=== PATIENT | female | born 1965 | race Caucasian/White ===

== ENCOUNTER → 2019-01-09 | Outpatient (CLI) | payer OTHER | END | disposition home or self-care (01) | LOC: NUC 09:45 | PROVIDERS: ATTEND Orthopaedic Surgery Adult Reconstructive Orthopaedic Surgery | DX: S72.001 Fracture of unspecified part of neck of right femur (principal); X58.XXXD Exposure to other specified factors, subsequent encounter | CPT/HCPCS: 78315; A9503 ==

== ENCOUNTER → 2019-01-10 | Outpatient (CLI) | payer OTHER | END | disposition home or self-care (01) | LOC: EDUNIT# 09:00 → NUC 09:35 | PROVIDERS: ATTEND Orthopaedic Surgery Adult Reconstructive Orthopaedic Surgery | DX: S72.001 Fracture of unspecified part of neck of right femur (principal); X58.XXXD Exposure to other specified factors, subsequent encounter; M16.11 Unilateral primary osteoarthritis, right hip | CPT/HCPCS: 78806; A9570 ==

== ENCOUNTER → 2019-04-22 | Outpatient (CLI) | payer OTHER ==
[~2019-04-22] MED LIST: ASPI-1044 PO; Acetaminophen PO; GABA300C16 PO; IBUP-1542 PO; IBUP-1545 PO; OXYC-481 PO
--- NOTE | 2019-04-28 23:05 | RADRPT ---
PROCEDURE: XR hip with limited pelvis. CLINICAL INDICATION: 53 years of age. Female. Right hip pain. History of right hip fracture. Concern for osteomyelitis versus osteoarthritis. TECHNIQUE: AP view of the inferior pelvis and 2 views of the right hip. COMPARISON: Nuclear medicine study bone scan and white blood cell indium scan January 09 and December. FINDINGS: Bones are osteopenic. RIGHT HIP: There are 2 screws transfixing the right femoral neck. Orthopedic hardware is intact without evidence of component loosening or failure. There is severe osteoarthritis of the right hip with obliteration of the superior joint space, subchondral sclerosis and bulky osteophytes. There is flattening of the superior femoral head with deformity concerning for osteonecrosis with articular surface collapse. T here is heterotopic ossification at the superior aspect of the hip with incomplete bony bridging. Limited imaging of the proximal femoral shaft demonstrates cortical thickening and bony expansion wit h periosteal new bone formation that may be from an old healed fracture. There is a radiolucency in t he bone that may be from prior removed hardware. AP PELVIS: Negative for evidence of acute fracture of the obturator rings or inferior iliac wings. Inferior sacr um and sacroiliac joints appear normal. The superior iliac wings and superior sacrum are excluded fro m the field of view. Limited left hip: Unremarkable. Additional comment: None. IMPRESSION: 1. Status post ORIF of the right femoral neck with hardware as described. 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 If there is clinical concern for septic arthritis or osteomyelitis, c onsider further evaluation with MRI or CT or diagnostic joint aspiration. MRI may or may not be diagn ostic depending on the nature of the hardware. 2. Suspected old healed fracture deformity of the right proximal femoral shaft with hyperostosis and radiolucency that may be due to a removed hardware. RPTAT: HCTS Physician Kenneth Date Time Electronically viewed and signed by Physician Kenneth on 04/28/2019 23:04 CS/
== END | disposition home or self-care (01) ==
LOC: HKI 09:51
PROVIDERS: ATTEND Orthopaedic Surgery Adult Reconstructive Orthopaedic Surgery
DX: M25.551 Pain in right hip (principal); M16.7 Other unilateral secondary osteoarthritis of hip
CPT/HCPCS: 73502

== ENCOUNTER 2019-05-07 09:07 | Inpatient (IN) | payer OTHER ==
[2019-04-29 09:53] VITALS: BMI 27.2
[~2019-05-07] VITALS: Ht 170.2 cm; Wt 77.4 kg
[2019-05-07] VITALS (23 sets, daily range): BP systolic 71–130; BP diastolic 46–64; PULSE 51–87; RESP 11–18; Ht 170.2 cm; Wt 77.4 kg
[~2019-05-07 09:07] MED LIST changes: +ACETAMINOPHEN 500 MG TAB PO ONE; -ASPI-1044 PO; -Acetaminophen PO; +CEFAZOLIN 2 GM/50 ML (PMX) 50 ML IVPB ONE; +CELECOXIB 200 MG CAP PO ONE; -GABA300C16 PO; +LACTATED RINGER'S 1,000 ML IV SCH; +LANSOPRAZOLE 30 MG CAP PO ONE; +ONDANSETRON 4 MG INJ IV ONE; -OXYC-481 PO; +TRANEXAMIC ACID 1GM/100ML(PMX) 100 ML AT CLOSING IVPB ONE; +TRANEXAMIC ACID 1GM/100ML(PMX) 100 ML PRE-OP IVPB ONE
--- NOTE | 2019-05-07 10:47 | PREAC ---
Date/Time of Note Date/Time of Note DATE: 05/07/19 TIME: 10:45 Anesthesia Eval and Record Evaluation Time Pre-Procedure Interview DATE: 05/07/19 TIME: 10:45 Age 53 Sex female NPO: 8 hrs Preoperative diagnosis right hip osteoarthritis Planned procedure right total hip replacement Past Medical History Past Medical History: Includes Musculoskeletal: Osteoarthritis Surgery & Anesthesia Issues No known issue Meds Anticoagulation: No Beta Dylon within 24 hr: No Reason Beta Dylon not given: Pt. not on B-Dylon Discontinued Reported Medications Ibuprofen* (Ibuprofen*) 800 Mg Tab, 800 MG PO TID, TAB 04/29/19 Ibuprofen* (Ibuprofen*) 600 Mg Tablet, 600 MG PO Q8, TAB 04/29/19 Current Medications Lactated Ringer's 1,000 ml @ 125 mls/hr Q8H IV ; Start 05/07/19 at 09:00; Stop 05/07/19 at 15:00 Ropivacaine/ Clonidine/ Epinephrine/ Ketorolac Tromethamine/ Sodium Chloride INTRA-OP INJ ; Start 05/07/19 at 14:00; Stop 05/07/19 at 15:00 Acetaminophen 100 ml @ 400 mls/hr PRE-OP ONCE IVPB ; Start 05/07/19 at 11:00; Stop 05/07/19 at 11:14 Meds reviewed: Yes Allergies Coded Allergies: No Known Allergy (Unverified , 05/07/19) Allergies Reviewed: Yes Labs/Studies Labs Reviewed: Reviewed by anesthesiologist test: Negative Studies: ECG, CXR Pre-procedure Exam Airway: Adequate mouth opening, Adequate thyromental dist Mallampati: Mallampati II Teeth: Normal Lung: Normal Heart: Normal ASA Physical Status ASA physical status: 2 Emergency: None Planned Anesthetic General/MAC: ETT Neuraxial: Spinal Planned Pain Management Parenteral pain med Pre-operative Attestations Prior to commencing anesthesia and surgery, the patient was re-evaluated, there was verification of: *The patient's identity *The results of appropriate recent lab work and preoperative vital signs *The above evaluation not changing prior to induction *Anesthetic plan, risk benefits, alternative and complications discussed with patient/family; questions answered; patient/family understands, accepts and wishes to proceed. ABRIL AVELAR May 07, 2019 10:47
[2019-05-07] MEDS ORDERED: ACETAMINOPHEN 1000MG/100ML IV 100 ML IVPB ONE (11:00)
[2019-05-07] MEDS ORDERED: VANCOMYCIN 1 GM INJ ONE (11:59)
[2019-05-07] MEDS ORDERED: TOBRAMYCIN 1.2 GM POWDER ONE (12:00)
--- NOTE | 2019-05-07 12:12 | HPN ---
Date/Time of Note Date/Time of Note DATE: 05/07/19 TIME: 12:12 Interval H&P Admission Note Pt. seen H&P reviewed: No system changes Patient denies fever, chills, shortness of breath, chest pain, nausea/vomiting, constipation, diarrhea, numbness, and tingling. MUSCULOSKELETAL: Right lower extremity Skin intact Sensation intact to light touch in a sural, saphenous, deep peroneal, superficial peroneal, medial and lateral plantar nerve distribution. Motor is intact, patient able to dorsiflex and plantarflex ankle and extend and flex great toe. Dorsalis Pedis pulse +2, Brisk capillary refill. Compartments are soft. Calves non-tender to palpation bilaterally. JOSELUIS ESTEBAN MD May 07, 2019 12:12
[2019-05-07] MEDS ORDERED: SEVOFLURANE 15 MIN ONE (12:15)
[2019-05-07] MEDS ORDERED: FENTAnyl 50 MCG/ML VIAL ONE (12:15)
[2019-05-07] MEDS ORDERED: ROCURONIUM 50 MG INJ ONE ×2 (12:15→13:14)
[2019-05-07] MEDS ORDERED: CEFAZOLIN 1 GM INJ ONE (12:15)
[2019-05-07] MEDS ORDERED: PROPOFOL 20 ML ONE (12:15)
[2019-05-07] MEDS ORDERED: MIDAZOLAM 1 MG/ML 2 ML INJ ONE (12:16)
[2019-05-07] MEDS ORDERED: LIDOCAINE 2% (SDV) 5 ML INJ ONE (13:14)
[2019-05-07] MEDS ORDERED: DEXAMETHASONE 4 MG/ML 5 ML INJ ONE (13:14)
[2019-05-07] MEDS ORDERED: TRANEXAMIC ACID 1GM/100ML(PMX) 100 ML ONE ×2 (17:06→17:07)
[2019-05-07] MEDS ORDERED: ONDANSETRON 4 MG INJ ONE (17:49)
--- NOTE | 2019-05-07 18:07 | PAC ---
Date/Time of Note Date/Time of Note DATE: 05/07/19 TIME: 18:06 Post-Anesthesia Notes Post-Anesthesia Note Last documented vital signs Vital Signs Date Temp Pulse Resp B/P (MAP) Pulse Ox O2 O2 Flow FiO2 Time Delivery Rate 05/07/19 98.2 51 16 130/64 100 1806 (86) Activity: WNL Respiratory function: WNL Cardiovascular function: WNL Mental status: Baseline Pain reasonably controlled: Yes Hydration appropriate: Yes Nausea/Vomiting absent: Yes ABRIL AVELAR May 07, 2019 18:07
[2019-05-07] MEDS ORDERED: LABETALOL HCL 20MG INJ IV PRN (18:30)
[2019-05-07] MEDS ORDERED: BETHANECHOL 25 MG TAB PO PRN (18:30)
[2019-05-07] MEDS ORDERED: NALOXONE (0.4 MG/ML) INJ IV PRN (18:30)
[2019-05-07] MEDS ORDERED: MAGNESIUM HYDROXIDE 30ML CUP PO PRN (18:30)
[2019-05-07] MEDS ORDERED: DIPHENHYDRAMINE 50 MG INJ IV PRN ×2 (18:30)
[2019-05-07] MEDS ORDERED: MEPERIDINE 25 MG INJ IV PRN (18:30)
[2019-05-07] MEDS ORDERED: ONDANSETRON 4 MG INJ IV PRN (18:30)
[2019-05-07] MEDS ORDERED: METOCLOPRAMIDE 10 MG INJ IV PRN (18:30)
[2019-05-07] MEDS ORDERED: hydrALAzine 20 MG INJ IV PRN (18:30)
[2019-05-07] MEDS ORDERED: NACL 0.9% 3 ML SYG IV SCH (18:30)
[2019-05-07] MEDS ORDERED: KETOROLAC 30 MG INJ IV PRN (18:30)
[2019-05-07] MEDS ORDERED: SENNA/DOCUSATE NA (8.6MG/50MG) TAB PO PRN (18:30)
[2019-05-07] MEDS ORDERED: HYDROmorphONE 1 MG/5 ML IV SYRINGE IV PRN ×3 (18:30)
[2019-05-07] MEDS ORDERED: ALBUTEROL 0.083% (NEB) 2.5 MG/3 ML AMP HHN PRN (18:30)
[2019-05-07] MEDS ORDERED: oxyCODONE 5 MG TAB PO PRN ×3 (18:30)
[2019-05-07] MEDS ORDERED: BISACODYL 10 MG SUPP PR PRN (18:30)
[2019-05-07] MEDS ORDERED: FENTAnyl 50 MCG/ML VIAL IV PRN ×3 (18:30)
[2019-05-07] MEDS ORDERED: EPHEDrine 25 MG/5 ML SYG IV PRN (18:30)
[2019-05-07] MEDS ORDERED: DOCUSATE SODIUM 100 MG CAP PO ONE (18:30)
[2019-05-07] MEDS ORDERED: HYDROmorphONE 1 MG/ML SYG IV PRN (18:30)
[2019-05-07] MEDS ORDERED: NA PHOSPHATE/BIPHOS 133 ML ENEMA PR PRN (18:30)
--- NOTE | 2019-05-07 19:24 | CONS ---
Assessment/Plan Assessment/Plan Assessment/Plan (Daily) 53 yo woman with prediabetes admitted after R total hip revision arthroplasty #R hip revision arthroplasty - Pain control per ortho - Weight bearing and PT per ortho - Anticoagulation per ortho #Pre-diabetes - I suspect this may have been more than "pre" diabetes as her fasting glucose postop was 184 and she had been prescribed metformin. - Will check HgbA1C - Insulin sliding scale, depending on blood sugars tonight will consider restarting metformin tomorrow - Carb controlled diet Medicine will continue to follow. Consultation Date/Type/Reason Admit Date/Time May 07, 2019 at 09:12 Date of Consultation: May 07, 2019 Type of Consult Internal Medicine Reason for Consultation Postoperative management Requesting Provider: JOSELUIS MENDEZ MD Date/Time of Note DATE: 05/07/19 TIME: 19:12 Hx of Present Illness Ms. Peralta is a 53 yo woman with history of prediabetes who presents for scheduled revision R hip arthroplasty. She had fall and fractured her R hip in 1984 and had surgical repair. For the past three years she's had severe arthritis symptoms. Takes frequent ibuprofen, no acetaminophen no opioids. Admitted today after R hip revision arthroplasty by Dr. Mendez. She was diagnosed with prediabetes recently and started on metformin. She stopped taking metformin about 6 months ago because she thinks "it got better". Fingerstick blood glucose in the PACU postop was 184. 12 point review of systems done, negative except per HPI. Past Medical History Pre-diabetes stopped metformin 6 months ago. Home Meds Discontinued Reported Medications Ibuprofen* (Ibuprofen*) 800 Mg Tab, 800 MG PO TID, TAB 04/29/19 Ibuprofen* (Ibuprofen*) 600 Mg Tablet, 600 MG PO Q8, TAB 04/29/19 Medications Current Medications Hydromorphone HCl (Dilaudid) 0.2 mg PACU PRN IV MILD PAIN 1-3; Start 05/07/19 at 18:30; Stop 05/07/19 at 23:00 Hydromorphone HCl (Dilaudid) 0.4 mg PACU PRN IV MOD PAIN 4-6; Start 05/07/19 at 18:30; Stop 05/07/19 at 23:00 Hydromorphone HCl (Dilaudid) 0.6 mg PACU PRN IV SEVERE PAIN 7-10; Start 05/07/19 at 18:30; Stop 05/07/19 at 23:00 Fentanyl (Sublimaze) 25 mcg PACU ORDER PRN IV MILD PAIN 1-3; Start 05/07/19 at 18:30; Stop 05/07/19 at 23:00 Fentanyl (Sublimaze) 50 mcg PACU ORDER PRN IV MOD PAIN 4-6; Start 05/07/19 at 18 :30; Stop 05/07/19 at 23:00 Fentanyl (Sublimaze) 75 mcg PACU ORDER PRN IV SEVERE PAIN 7-10; Start 05/07/19 at 18:30; Stop 05/07/19 at 23:00 Ketorolac Tromethamine (Toradol) 30 mg PACU ORDER PRN IV FOR PAIN AFTER IV NARCOTIC MED; Start 05/07/19 at 18:30; Stop 05/07/19 at 23:00 Ondansetron HCl (Zofran Inj) 4 mg PACU ORDER PRN IV NAUSEA/VOMITING; Start 05/07/19 at 18:30; Stop 05/07/19 at 23:00 Metoclopramide HCl (Reglan) 10 mg PACU ORDER PRN IV NAUSEA/VOMITING; Start 05/07/19 at 18:30; Stop 05/07/19 at 23:00 Labetalol HCl (Labetalol) 5 mg PACU ORDER PRN IV HIGH BLOOD PRESSURE; Start 05/07/19 at 18:30; Stop 05/07/19 at 23:00 Hydralazine HCl (Apresoline) 5 mg PACU ORDER PRN IV HIGH BLOOD PRESSURE; Start 05/07/19 at 18:30; Stop 05/07/19 at 23:00 Ephedrine Sulfate 5 mg PACU ORDER PRN IV BLOOD PRESSURE SUPPORT; Start 05/07/19 at 18:30; Stop 05/07/19 at 23:00 Albuterol (Proventil 0.083% (Neb)) 2.5 mg PACU ORDER PRN HHN .WHEEZING; Start 05/07/19 at 18:30; Stop 05/07/19 at 23:00 Meperidine HCl (Demerol) 25 mg PACU ORDER PRN IV .RIGORS; Start 05/07/19 at 18:30; Stop 05/07/19 at 23:00 Diphenhydramine HCl (Benadryl) 25 mg PACU ORDER PRN IV .PRURITUS; Start 05/07/19 at 18:30; Stop 05/07/19 at 23:00 Lactated Ringer's 1,000 ml @ 80 mls/hr [id number] IV ; Start 05/07/19 at 18:17 Oxycodone HCl (Roxicodone) 15 mg Q4H PRN PO .PAIN; Start 05/07/19 at 18:30 Oxycodone HCl (Roxicodone) 10 mg Q4H PRN PO .PAIN; Start 05/07/19 at 18:30 Oxycodone HCl (Roxicodone) 5 mg Q4H PRN PO .PAIN; Start 05/07/19 at 18:30 Hydromorphone HCl (Dilaudid) 1 mg Q3H PRN IV .BREAKTHROUGH PAIN; Start 05/07/19 at 18:30 Acetaminophen (Tylenol Tab) 1,000 mg Q8 PO ; Start 05/07/19 at 22:00 Ondansetron HCl (Zofran Inj) 4 mg Q4H PRN IV NAUSEA/VOMITING; Start 05/08/19 at 18:30 Cefazolin Sodium/ Dextrose 50 ml @ 100 mls/hr Q8H IVPB ; Start 05/07/19 at 18:30; Stop 05/08/19 at 10:59 Gabapentin (Neurontin) 300 mg QHS PO ; Start 05/07/19 at 21:00 Pantoprazole (Protonix Tab) 40 mg DAILY@06 PO ; Start 05/08/19 at 06:00 Docusate Sodium (Colace) 200 mg BID PO ; Start 05/08/19 at 09:00; Stop 05/10/19 at 21:01 Simethicone (Mylicon) 80 mg TID PRN PO .GAS; Start 05/07/19 at 18:30 Senna/Docusate Sodium (Senokot-S) 2 tab BID PRN PO .CONSTIPATION; Start 05/07/19 at 18:30 Magnesium Hydroxide (Milk Of Mag) 30 ml HS PRN PO .CONSTIPATION; Start 05/07/19 at 18:30 Bisacodyl (Dulcolax Supp) 10 mg DAILY PRN VA .CONSTIPATION; Start 05/07/19 at 18:30 Sodium Biphosphate/ Sodium Phosphate (Fleet Enema) 133 ml DAILY PRN VA .CONSTIPATION; Start 05/07/19 at 18:30 Diphenhydramine HCl (Benadryl) 25 mg Q4H PRN IV .ITCHING; Start 05/07/19 at 18:30 Naloxone HCl (Narcan) 0.2 mg Q2M PRN IV .RESP RATE; Start 05/07/19 at 18:30 IV Flush (NS 3 ml) 3 ml per protocol IV ; Start 05/07/19 at 18:30 Bethanechol Chloride (Urecholine) 25 mg URINARY CATH D/C PRN PO UNABLE TO VOID; Start 05/07/19 at 18:30 Aspirin (Halfprin) 81 mg BID PO ; Start 05/08/19 at 09:00 Allergies: Coded Allergies: No Known Allergy (Unverified , 05/07/19) Past Surgical History R hip repair 1985 x3 R breast lipoma removal (benign) Social History Alcohol Use: none Smoking Status: Never smoker Drug Use: none Exam/Review of Systems Exam Vitals Vital Signs Date Temp Pulse Resp B/P (MAP) Pulse Ox O2 O2 Flow FiO2 Time Delivery Rate 05/07/19 98.2 51 16 130/64 100 11:31 (86) Intake and Output 05/06/19 05/06/19 05/07/19 1515:00 23:00 07:00 IntakeIntake Total 3000 ml OutputOutput Total 1100 ml BalanceBalance 1900 ml Exam Gen: Overweight woman well appearing in no acute distress. Eyes: PERRL, no icterus HEENT: Moist mucous membranes, intact dentition, clear oropharynx Neck: Supple, no lymphadenopathy Card: Regular rate and rhythm, no murmurs Pulm: Clear to auscultation bilaterally, no crackles Abd: Soft, nontender, nondistended. Normoactive bowel sounds. Ext: R hip well healed scar. Dressing clean, dry, intact. Peripherally neurovascular intact. Skin: warm, dry, well perfused. Results Result Diagram: 05/07/19 1050 05/07/19 1050 Results 24hrs Laboratory Tests Test 05/07/19 10:50 05/07/19 18:57 White Blood Count 5.2 Red Blood Count 4.37 Hemoglobin 12.1 Hematocrit 37.0 Mean Corpuscular Volume 84.7 Mean Corpuscular Hemoglobin 27.7 L Mean Corpuscular Hemoglobin Concent 32.7 Red Cell Distribution Width 14.6 H Platelet Count 180 Mean Platelet Volume 11.1 H Immature Granulocytes % 0.200 Neutrophils % 52.0 Lymphocytes % 37.4 Monocytes % 6.9 Eosinophils % 2.7 Basophils % 0.8 Nucleated Red Blood Cells % 0.0 Immature Granulocytes # 0.010 Neutrophils # 2.7 Lymphocytes # 2.0 Monocytes # 0.4 Eosinophils # 0.1 Basophils # 0.0 Nucleated Red Blood Cells # 0.0 Prothrombin Time 12.7 Prothrombin Time Ratio 1.0 INR International Normalized Ratio 0.94 Activated Partial Thromboplast Time 34.5 Sodium Level 145 H Potassium Level 4.2 Chloride Level 108 Carbon Dioxide Level 29 Anion Gap 8 Blood Urea Nitrogen 16 Creatinine 0.66 Est Glomerular Filtrat Rate mL/min > 60 Glucose Level 95 Calcium Level 9.8 Bedside Glucose 184 Medications Medication Current Medications Hydromorphone HCl (Dilaudid) 0.2 mg PACU PRN IV MILD PAIN 1-3; Start 05/07/19 at 18:30; Stop 05/07/19 at 23:00 Hydromorphone HCl (Dilaudid) 0.4 mg PACU PRN IV MOD PAIN 4-6; Start 05/07/19 at 18:30; Stop 05/07/19 at 23:00 Hydromorphone HCl (Dilaudid) 0.6 mg PACU PRN IV SEVERE PAIN 7-10; Start 05/07/19 at 18:30; Stop 05/07/19 at 23:00 Fentanyl (Sublimaze) 25 mcg PACU ORDER PRN IV MILD PAIN 1-3; Start 05/07/19 at 18:30; Stop 05/07/19 at 23:00 Fentanyl (Sublimaze) 50 mcg PACU ORDER PRN IV MOD PAIN 4-6; Start 05/07/19 at 18:30; Stop 05/07/19 at 23:00 Fentanyl (Sublimaze) 75 mcg PACU ORDER PRN IV SEVERE PAIN 7-10; Start 05/07/19 at 18:30; Stop 05/07/19 at 23:00 Ketorolac Tromethamine (Toradol) 30 mg PACU ORDER PRN IV FOR PAIN AFTER IV NARCOTIC MED; Start 05/07/19 at 18:30; Stop 05/07/19 at 23:00 Ondansetron HCl (Zofran Inj) 4 mg PACU ORDER PRN IV NAUSEA/VOMITING; Start 05/07/19 at 18:30; Stop 05/07/19 at 23:00 Metoclopramide HCl (Reglan) 10 mg PACU ORDER PRN IV NAUSEA/VOMITING; Start 05/07/19 at 18:30; Stop 05/07/19 at 23:00 Labetalol HCl (Labetalol) 5 mg PACU ORDER PRN IV HIGH BLOOD PRESSURE; Start 05/07/19 at 18:30; Stop 05/07/19 at 23:00 Hydralazine HCl (Apresoline) 5 mg PACU ORDER PRN IV HIGH BLOOD PRESSURE; Start 05/07/19 at 18:30; Stop 05/07/19 at 23:00 Ephedrine Sulfate 5 mg PACU ORDER PRN IV BLOOD PRESSURE SUPPORT; Start 05/07/19 at 18:30; Stop 05/07/19 at 23:00 Albuterol (Proventil 0.083% (Neb)) 2.5 mg PACU ORDER PRN HHN .WHEEZING; Start 05/07/19 at 18:30; Stop 05/07/19 at 23:00 Meperidine HCl (Demerol) 25 mg PACU ORDER PRN IV .RIGORS; Start 05/07/19 at 18:30; Stop 05/07/19 at 23:00 Diphenhydramine HCl (Benadryl) 25 mg PACU ORDER PRN IV .PRURITUS; Start 05/07/19 at 18:30; Stop 05/07/19 at 23:00 Lactated Ringer's 1,000 ml @ 80 mls/hr [id number] IV ; Start 05/07/19 at 18:17 Oxycodone HCl (Roxicodone) 15 mg Q4H PRN PO .PAIN; Start 05/07/19 at 18:30 Oxycodone HCl (Roxicodone) 10 mg Q4H PRN PO .PAIN; Start 05/07/19 at 18:30 Oxycodone HCl (Roxicodone) 5 mg Q4H PRN PO .PAIN; Start 05/07/19 at 18:30 Hydromorphone HCl (Dilaudid) 1 mg Q3H PRN IV .BREAKTHROUGH PAIN; Start 05/07/19 at 18:30 Acetaminophen (Tylenol Tab) 1,000 mg Q8 PO ; Start 05/07/19 at 22:00 Ondansetron HCl (Zofran Inj) 4 mg Q4H PRN IV NAUSEA/VOMITING; Start 05/08/19 at 18:30 Cefazolin Sodium/ Dextrose 50 ml @ 100 mls/hr Q8H IVPB ; Start 05/07/19 at 18:30; Stop 05/08/19 at 10:59 Gabapentin (Neurontin) 300 mg QHS PO ; Start 05/07/19 at 21:00 Pantoprazole (Protonix Tab) 40 mg DAILY@06 PO ; Start 05/08/19 at 06:00 Docusate Sodium (Colace) 200 mg BID PO ; Start 05/08/19 at 09:00; Stop 05/10/19 at 21:01 Simethicone (Mylicon) 80 mg TID PRN PO .GAS; Start 05/07/19 at 18:30 Senna/Docusate Sodium (Senokot-S) 2 tab BID PRN PO .CONSTIPATION; Start 05/07/19 at 18:30 Magnesium Hydroxide (Milk Of Mag) 30 ml HS PRN PO .CONSTIPATION; Start 05/07/19 at 18:30 Bisacodyl (Dulcolax Supp) 10 mg DAILY PRN VA .CONSTIPATION; Start 05/07/19 at 18:30 Sodium Biphosphate/ Sodium Phosphate (Fleet Enema) 133 ml DAILY PRN VA .CONSTIPATION; Start 05/07/19 at 18:30 Diphenhydramine HCl (Benadryl) 25 mg Q4H PRN IV .ITCHING; Start 05/07/19 at 18:30 Naloxone HCl (Narcan) 0.2 mg Q2M PRN IV .RESP RATE; Start 05/07/19 at 18:30 IV Flush (NS 3 ml) 3 ml per protocol IV ; Start 05/07/19 at 18:30 Bethanechol Chloride (Urecholine) 25 mg URINARY CATH D/C PRN PO UNABLE TO VOID; Start 05/07/19 at 18:30 Aspirin (Halfprin) 81 mg BID PO ; Start 05/08/19 at 09:00 ANTWON TOLEDO MD May 07, 2019 19:24
[2019-05-07] MEDS ORDERED: DEXTROSE 50% 50 ML SYRINGE IV PRN ×2 (19:30)
[2019-05-07] MEDS ORDERED: GLUCAGON 1 MG INJ IM PRN (19:30)
[2019-05-07] MEDS ORDERED: GLUCOSE GEL 15 GRAM TUBE BUCCAL PRN (19:30)
[2019-05-07] MEDS ORDERED: GLUCOSE GEL 15 GRAM TUBE PO PRN ×2 (19:30)
[2019-05-07] MEDS: CEFAZOLIN 2 GM/50 ML (PMX) 50 ML IVPB SCH (19:35)
[2019-05-07] MEDS: LACTATED RINGER'S 1,000 ML IV SCH ×2 (20:39→20:41)
[2019-05-07] MEDS: GABAPENTIN 300 MG CAP PO SCH (20:41)
[2019-05-07] MEDS: INSULIN ASPART [NOVOLOG] 3 ML PEN SC SCH (20:44)
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
[2019-05-07] MEDS: ACETAMINOPHEN 500 MG TAB PO SCH (22:22)
[2019-05-08 00:38] VITALS: BP 90/53; PULSE 55; RESP 18
[2019-05-08] MEDS: ACCU-CHEK XX SCH (02:00)
[2019-05-08] MEDS: CEFAZOLIN 2 GM/50 ML (PMX) 50 ML IVPB SCH ×2 (02:00→10:45)
[2019-05-08] MEDS: PANTOPRAZOLE (EC) 40 MG TAB PO SCH (05:11)
[2019-05-08] MEDS: ACETAMINOPHEN 500 MG TAB PO SCH ×3 (05:12→21:24)
[2019-05-08] MEDS: LACTATED RINGER'S 1,000 ML IV SCH ×2 (06:01→19:17)
[2019-05-08 07:38] VITALS: BP 81/47; PULSE 70; RESP 19
[2019-05-08] MEDS: INSULIN ASPART [NOVOLOG] 3 ML PEN SC SCH ×4 (07:50→21:00)
[2019-05-08] MEDS: ASPIRIN (EC) 81 MG TAB PO SCH ×2 (08:31→21:23)
[2019-05-08] MEDS: DOCUSATE SODIUM 100 MG CAP PO SCH ×2 (08:31→21:23)
[2019-05-08 15:05] VITALS: BP 87/51; PULSE 65; RESP 17
--- NOTE | 2019-05-08 16:13 | PN ---
Date/Time of Note Date/Time of Note DATE: 05/08/19 TIME: 16:10 Assessment/Plan VTE Prophylaxis Risk score (from Nsg)>0 risk: 4 SCD applied (from Nsg): Yes Pharmacological prophylaxis: other (per ortho) Lines/Catheters IV Catheter Type (from Nrsg): Peripheral IV Urinary Cath still in place: No Assessment/Plan Assessment/Plan 53 yo woman with prediabetes admitted after R total hip revision arthroplasty #R hip revision arthroplasty - Pain control per ortho - Weight bearing and PT per ortho - I agree with aspirin 81mg BID for anticoagulation. #Pre-diabetes - HgbA1C 5.3 - Not requiring insulin sliding scale. - Carb controlled diet - Will not need medical treatment of this after discharge. Patient lives on first floor of house without stairs. Medically clear for discharge from my perspective. Result Diagram: 05/08/1944305/08/19443 Subjective 24 Hr Interval Summary Free Text/Dictation Patient doing well this morning. Ambulated with physical therapy. Exam/Review of Systems Exam Vitals Vital Signs Date Temp Pulse Resp B/P (MAP) Pulse Ox O2 O2 Flow FiO2 Time Delivery Rate 05/08/19 98.3 65 17 87/51 (63) 100 Room Air 15:05 Intake and Output 05/07/19 05/07/19 05/08/19 1515:00 23:00 07:00 IntakeIntake Total 100 ml 1070 ml OutputOutput Total 100 ml 1700 ml BalanceBalance 100 ml -100 ml -630 ml Exam Gen: Overweight woman well appearing in no acute distress. Eyes: PERRL, no icterus HEENT: Moist mucous membranes, intact dentition, clear oropharynx Neck: Supple, no lymphadenopathy Card: Regular rate and rhythm, no murmurs Pulm: Clear to auscultation bilaterally, no crackles Abd: Soft, nontender, nondistended. Normoactive bowel sounds. Ext: R hip well healed scar. Dressing clean, dry, intact. Mild blood spotting. Peripherally neurovascular intact. Skin: warm, dry, well perfused. Results Results 24hrs Laboratory Tests Test 05/07/19 18:57 05/07/19 20:43 05/08/19 04:44 05/08/19 08:29 Bedside Glucose 184 157 132 White Blood Count 10.0 # Red Blood Count 2.86 #L Hemoglobin 7.9 #L Hematocrit 23.7 #L Mean Corpuscular 82.9 Volume Mean Corpuscular 27.6 L Hemoglobin Mean Corpuscular 33.3 Hemoglobin Concent Red Cell Distribution 14.4 Width Platelet Count 148 Mean Platelet Volume 11.5 H Immature Granulocytes 0.400 % Neutrophils % 85.1 H Lymphocytes % 9.9 L Monocytes % 4.4 Eosinophils % 0.0 Basophils % 0.2 Nucleated Red Blood 0.0 Cells % Immature Granulocytes 0.040 H # Neutrophils # 8.5 H Lymphocytes # 1.0 Monocytes # 0.4 Eosinophils # 0.0 Basophils # 0.0 Nucleated Red Blood 0.0 Cells # Prothrombin Time 14.4 Prothrombin Time 1.1 Ratio INR International 1.11 Normalized Ratio Sodium Level 140 Potassium Level 4.2 Chloride Level 108 Carbon Dioxide Level 25 Anion Gap 7 Blood Urea Nitrogen 14 Creatinine 0.57 Est Glomerular > 60 Filtrat Rate mL/min Glucose Level 129 Calcium Level 8.4 Test 05/08/19 13:06 Bedside Glucose 129 Medications Medication Current Medications Lactated Ringer's 1,000 ml @ 80 mls/hr [id number] IV Last administered on 05/07/19at 20:41; Admin Dose 80 MLS/HR; Start 05/07/19 at 18:17 Oxycodone HCl (Roxicodone) 15 mg Q4H PRN PO .PAIN; Start 05/07/19 at 18:30 Oxycodone HCl (Roxicodone) 10 mg Q4H PRN PO .PAIN; Start 05/07/19 at 18:30 Oxycodone HCl (Roxicodone) 5 mg Q4H PRN PO .PAIN; Start 05/07/19 at 18:30 Hydromorphone HCl (Dilaudid) 1 mg Q3H PRN IV .BREAKTHROUGH PAIN; Start 05/07/19 at 18:30 Acetaminophen (Tylenol Tab) 1,000 mg Q8 PO Last administered on 05/08/19at 13:06; Admin Dose 1,000 MG; Start 05/07/19 at 22:00 Ondansetron HCl (Zofran Inj) 4 mg Q4H PRN IV NAUSEA/VOMITING; Start 05/08/19 at 18:30 Gabapentin (Neurontin) 300 mg QHS PO Last administered on 05/07/19at 20:41; Admin Dose 300 MG; Start 05/07/19 at 21:00 Pantoprazole (Protonix Tab) 40 mg DAILY@06 PO Last administered on 05/08/19at 05:11; Admin Dose 40 MG; Start 05/08/19 at 06:00 Docusate Sodium (Colace) 200 mg BID PO Last administered on 05/08/19at 08:31; Admin Dose 200 MG; Start 05/08/19 at 09:00; Stop 05/10/19 at 21:01 Simethicone (Mylicon) 80 mg TID PRN PO .GAS; Start 05/07/19 at 18:30 Senna/Docusate Sodium (Senokot-S) 2 tab BID PRN PO .CONSTIPATION; Start 05/07/19 at 18:30 Magnesium Hydroxide (Milk Of Mag) 30 ml HS PRN PO .CONSTIPATION; Start 05/07/19 at 18:30 Bisacodyl (Dulcolax Supp) 10 mg DAILY PRN MT .CONSTIPATION; Start 05/07/19 at 18:30 Sodium Biphosphate/ Sodium Phosphate (Fleet Enema) 133 ml DAILY PRN MT .CONSTIPATION; Start 05/07/19 at 18:30 Diphenhydramine HCl (Benadryl) 25 mg Q4H PRN IV .ITCHING; Start 05/07/19 at 18:30 Naloxone HCl (Narcan) 0.2 mg Q2M PRN IV .RESP RATE; Start 05/07/19 at 18:30 IV Flush (NS 3 ml) 3 ml per protocol IV ; Start 05/07/19 at 18:30 Bethanechol Chloride (Urecholine) 25 mg URINARY CATH D/C PRN PO UNABLE TO VOID; Start 05/07/19 at 18:30 Aspirin (Halfprin) 81 mg BID PO Last administered on 05/08/19at 08:31; Admin Dose 81 MG; Start 05/08/19 at 09:00 Diagnostic Test (Pha) (Accu-Chek) 1 ea 02 XX ; Start 05/08/19 at 02:00 Insulin Aspart (Novolog Insulin Pen) NOVOLOG *MILD* ALGORITHM WITH MEALS BEDTIME SC ; Start 05/07/19 at 21:00 Miscellaneous Information 1 ea NOTE XX ; Start 05/07/19 at 19:30 Glucose (Glutose) 15 gm Q15M PRN PO DECREASED GLUCOSE; Start 05/07/19 at 19:30 Glucose (Glutose) 22.5 gm Q15M PRN PO DECREASED GLUCOSE; Start 05/07/19 at 19:30 Dextrose (D50w Syringe) 25 ml Q15M PRN IV DECREASED GLUCOSE; Start 05/07/19 at 19:30 Dextrose (D50w Syringe) 50 ml Q15M PRN IV DECREASED GLUCOSE; Start 05/07/19 at 19:30 Glucagon (Glucagen) 1 mg Q15M PRN IM DECREASED GLUCOSE; Start 05/07/19 at 19:30 Glucose (Glutose) 15 gm Q15M PRN BUCCAL DECREASED GLUCOSE; Start 05/07/19 at 19:30 ANTWON TOLEDO MD May 08, 2019 16:13
--- NOTE | 2019-05-08 16:26 | PN ---
Date/Time of Note Date/Time of Note DATE: 05/08/19 TIME: 16:25 Assessment/Plan Lines/Catheters IV Catheter Type (from Nrsg): Peripheral IV Medel in Place (from Nrs): No Assessment/Plan Chief Complaint/Hosp Course POD#1 s/p primary right MOMO. Patient is touchdown weightbearing on the right lower extremity secondary to less than ideal cup fixation due to bone loss. Patient is doing well today with physical therapy -Post op H&H stable -PT/OT. Posterior Hip Precautions -Joints pain control protocol -DVT prophylaxis: SCD's, ASA 81 mg twice daily x6 weeks -Weight bearing status: Touchdown weight-bear right lower extremity -Diet: ADAT -Medel: Discontinued -Discharge planning consult Planned Discharge Date: Tomorrow Discharge to home with home health Subjective 24 Hr Interval Summary Patient doing well No acute events overnight Pain is well controlled Exam/Review of Systems Vital Signs Vitals Vital Signs Date Temp Pulse Resp B/P (MAP) Pulse Ox O2 O2 Flow FiO2 Time Delivery Rate 05/08/19 98.3 65 17 87/51 (63) 100 Room Air 15:05 Intake and Output 05/07/19 05/07/19 05/08/19 1515:00 23:00 07:00 IntakeIntake Total 100 ml 1070 ml OutputOutput Total 100 ml 1700 ml BalanceBalance 100 ml -100 ml -630 ml Exam Free Text/Dictation Right lower extremity: Dressing: clean, dry, and intact, no erythema Sensation intact to light touch in a sural, saphenous, deep peroneal, superficial peroneal, medial and lateral plantar nerve distribution. Motor is intact, patient able to dorsiflex and plantarflex ankle and extend and flex great toe. Dorsalis Pedis pulse +2, Brisk capillary refill. Compartments are soft. Calves non-tender to palpation bilaterally. Results Result Diagram: 05/08/19 0444 05/08/19 0444 JOSELUIS ESTEBAN MD May 08, 2019 16:26
[2019-05-08] MEDS ORDERED: ONDANSETRON 4 MG INJ IV PRN (18:30)
[2019-05-08 19:40] VITALS: BP 105/53; PULSE 59; RESP 18
[2019-05-08] MEDS: GABAPENTIN 300 MG CAP PO SCH (21:23)
[2019-05-09] MEDS: ACCU-CHEK XX SCH (02:00)
[2019-05-09 02:16] VITALS: BP 90/52; PULSE 77; RESP 18
[2019-05-09] MEDS: PANTOPRAZOLE (EC) 40 MG TAB PO SCH (05:35)
[2019-05-09] MEDS: ACETAMINOPHEN 500 MG TAB PO SCH ×2 (05:36→13:41)
[2019-05-09 07:25] VITALS: BP 84/53; PULSE 66; RESP 15
[2019-05-09] MEDS: LACTATED RINGER'S 1,000 ML IV SCH (07:26)
[2019-05-09] MEDS: INSULIN ASPART [NOVOLOG] 3 ML PEN SC SCH ×2 (07:50→11:40)
[2019-05-09] MEDS: ASPIRIN (EC) 81 MG TAB PO SCH (08:36)
[2019-05-09] MEDS: DOCUSATE SODIUM 100 MG CAP PO SCH (08:36)
[2019-05-09 12:39] VITALS: BP 102/56; PULSE 71; RESP 17
[2019-05-09 14:15] VITALS: BP 96/52; PULSE 95; RESP 15
--- NOTE | 2019-05-09 14:39 | PN ---
Date/Time of Note Date/Time of Note DATE: 05/09/19 TIME: 14:37 Assessment/Plan Lines/Catheters IV Catheter Type (from Nrsg): Saline Lock Medel in Place (from Nrsg): No Assessment/Plan Chief Complaint/Hosp Course POD#2 s/p primary right MOMO. Patient is touchdown weightbearing on the right lower extremity secondary to less than ideal cup fixation due to bone loss. Patient is doing well today with physical therapy patient does have acute anemia secondary to blood loss, however it is stable. Her vital signs are stable and she is not experiencing lightheadedness or dizziness. She does have a mild headache but it is not unchanged when she stands up and ambulates. The patient is tolerating her diet well. Pain is very well controlled. Patient has no stairs at home and has enough help at home to be discharged home today. -Post op H&H stable -PT/OT. Posterior Hip Precautions -Joints pain control protocol -DVT prophylaxis: SCD's, ASA 81 mg twice daily x6 weeks -Weight bearing status: Touchdown weight-bear right lower extremity -Diet: ADAT -Discharge planning consult Planned Discharge Date: Today Discharge to home with home health and home PT Subjective 24 Hr Interval Summary Patient doing well No acute events overnight Pain is well controlled Exam/Review of Systems Vital Signs Vitals Vital Signs Date Temp Pulse Resp B/P (MAP) Pulse Ox O2 O2 Flow FiO2 Time Delivery Rate 05/09/19 98.7 95 15 96/52 (67) 98 Room Air 14:15 Intake and Output 05/08/19 05/08/19 05/09/19 1515:00 23:00 07:00 IntakeIntake Total 450 ml 1100 ml BalanceBalance 450 ml 1100 ml Exam Free Text/Dictation Right lower extremity: Dressing: clean, dry, and intact, no erythema Sensation intact to light touch in a sural, saphenous, deep peroneal, superficial peroneal, medial and lateral plantar nerve distribution. Motor is intact, patient able to dorsiflex and plantarflex ankle and extend and flex great toe. Dorsalis Pedis pulse +2, Brisk capillary refill. Compartments are soft. Calves non-tender to palpation bilaterally. Results Result Diagram: 05/09/19 1120 05/09/19 0458 JOSELUIS ESTEBAN MD May 09, 2019 14:39
[2019-05-09] MEDS ORDERED: GABA300C16 PO (14:42)
[2019-05-09] MEDS ORDERED: OXYC-481 PO (14:42)
[2019-05-09] MEDS ORDERED: Acetaminophen PO (14:42)
[2019-05-09] MEDS ORDERED: ASPI-1044 PO (14:42)
--- NOTE | 2019-05-09 14:45 | DS ---
Date/Time of Note Date/Time of Note DATE: 05/09/19 TIME: 14:43 Discharge Summary Admission/Discharge Info Admit Date/Time May 07, 2019 at 09:12 Discharge Date/Time Hospital Course POD#2 s/p primary right MOMO. 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 Patient is doing well today with physical therapy patient does have acute anemia secondary to blood loss, however it is stable. Her vital signs are stable and she is not experiencing lightheadedness or dizziness. She does have a mild headache but it is not unchanged when she stands up and ambulates. The patient is tolerating her diet well. Pain is very well controlled. Patient has no stairs at home and has enough help at home to be discharged home today. -Post op H&H stable -PT/OT. Posterior Hip Precautions -Joints pain control protocol -DVT prophylaxis: SCD's, ASA 81 mg twice daily x6 weeks -Weight bearing status: Touchdown weight-bear right lower extremity -Diet: ADAT -Discharge planning consult Planned Discharge Date: Today Discharge to home with home health and home PT Patient will follow-up in 2 weeks. She will then be seen 6 weeks postop. General plan for weightbearing is to begin weightbearing 50% at 8 weeks and then obtaining new x-rays at 10 weeks and if stable progress to weightbearing as tolerated and follow-up again at 12 weeks for repeat x-rays. Home Meds Active Scripts [Acetaminophen Tab] 500 MG TAB No Conflict Check, 1000 MG PO Q8 for 14 Days, TAB Prov:JOSELUIS ESTEBAN MD 05/09/19 Discontinued Reported Medications Ibuprofen* (Ibuprofen*) 800 Mg Tab, 800 MG PO TID, TAB 04/29/19 Ibuprofen* (Ibuprofen*) 600 Mg Tablet, 600 MG PO Q8, TAB 04/29/19 Primary Care Provider Not On Staff Doctor Time spent on discharge: < 30 minutes Pending Labs Laboratory Tests Test 05/08/19 17:23 05/08/19 21:22 05/09/19 04:58 05/09/19 08:35 Bedside 141 117 111 Glucose mg/dL (70-220) mg/dL (70-220) mg/dL (70-220) White Blood 5.3 Count 10^3/ul (4.8-1 0.8) Red Blood 2.49 Count 10^6/ul (4.20- 5.40) Hemoglobin 6.9 g/dl (12.0-16. 0) Hematocrit 21.0 % (37.0-47.0) Mean 84.3 Corpuscular fl (82.0-101.0 Volume ) Mean 27.7 Corpuscular pg (29.0-33.0) Hemoglobin Mean 32.9 Corpuscular g/dl (32.0-37. Hemoglobin Conc 0) ent Red Cell 15.1 Distribution % (11.5-14.5) Width Platelet Count 117 10^3/UL (140-4 15) Mean Platelet 12.3 Volume fl (7.4-10.4) Immature 0.400 Granulocytes % % (0.001-0.429 ) Neutrophils % 61.5 % (39.0-77.0) Lymphocytes % 30.5 % (15.0-51.0) Monocytes % 7.0 % (0.0-11.0) Eosinophils % 0.4 % (0.0-7.0) Basophils % 0.2 % (0.0-2.0) Nucleated Red 0.0 Blood Cells % /100WBC (0.0-0 .0) Immature 0.020 Granulocytes # 10^3/ul (0.0-0 .031) Neutrophils # 3.3 10^3/ul (1.6-7 .5) Lymphocytes # 1.6 10^3/ul (0.8-2 .9) Monocytes # 0.4 10^3/ul (0.3-0 .9) Eosinophils # 0.0 10^3/ul (0.0-0 .5) Basophils # 0.0 10^3/ul (0.0-0 .1) Nucleated Red 0.0 Blood Cells # 10^3/ul (0.0-0 .0) Prothrombin 13.8 Time Sec (11.9-14.9 ) Prothrombin 1.1 Time Ratio INR 1.05 International Normalized Rati o Sodium Level 144 mmol/L (135-14 4) Potassium 3.8 Level mmol/L (3.5-5. 1) Chloride Level 108 mmol/L (97-110 ) Carbon Dioxide 31 Level mmol/L (21-31) Anion Gap 5 (5-13) Blood Urea 14 Nitrogen mg/dl (7-20) Creatinine 0.64 mg/dl (0.44-1. 00) Est Glomerular > 60 Filtrat mL/min (>60) Rate mL/min Glucose Level 102 mg/dl (70-220) Calcium Level 8.7 mg/dl (8.4-10. 2) Test 05/09/19 11:20 05/09/19 12:30 White Blood 6.5 Count 10^3/ul (4.8-10 .8) Red Blood 2.41 Count 10^6/ul (4.20-5 .40) Hemoglobin 6.7 g/dl (12.0-16.0 ) Hematocrit 20.5 % (37.0-47.0) Mean 85.1 Corpuscular fl (82.0-101.0) Volume Mean 27.8 Corpuscular pg (29.0-33.0) Hemoglobin Mean 32.7 Corpuscular g/dl (32.0-37.0 Hemoglobin Conc ) ent Red Cell 15.1 Distribution % (11.5-14.5) Width Platelet Count 115 10^3/UL (140-41 5) Mean Platelet 12.1 Volume fl (7.4-10.4) Immature 0.300 Granulocytes % % (0.001-0.429) Neutrophils % % (39.0-77.0) Segmented 62 % (39-77) Neutrophils % (Manual) Band 3 % (0-4) Neutrophils % (Manual) Lymphocytes % % (15.0-51.0) Lymphocytes % 30 % (15-51) (Manual) Monocytes % % (0.0-11.0) Monocytes % 4 % (0-11) (Manual) Eosinophils % % (0.0-7.0) Eosinophils % 1 % (0-7) (Manual) Basophils % % (0.0-2.0) Nucleated Red 0.0 Blood Cells % /100WBC (0.0-0. 0) Immature 0.020 Granulocytes # 10^3/ul (0.0-0. 031) Neutrophils # 10^3/ul (1.6-7. 5) Neutrophils # 4.0 (Manual) 10^3/ul (1.6-7. 5) Band 0.1 Neutrophils # 10^3/ul (0.0-0. 6) Lymphocytes 1.9 (Manual) 10^3/ul (0.8-2. 9) Lymphocytes # 10^3/ul (0.8-2. 9) Monocytes # 10^3/ul (0.3-0. 9) Monocytes # 0.2 (Manual) 10^3/ul (0.3-0. 9) Eosinophils # 10^3/ul (0.0-0. 5) Basophils # 10^3/ul (0.0-0. 1) Nucleated Red 10^3/ul (0.0-0. Blood Cells # 0) Platelet DECREASED Estimate Polychromasia 3+ (0-0) Poikilocytosis 1+ (0-0) Anisocytosis 2+ (0-0) Macrocytosis 1+ (0-0) Bedside 93 Glucose mg/dL (70-220) JOSELUIS ESTEBAN MD May 09, 2019 14:45
== END 2019-05-09 17:14 | disposition home health service (06) | DRG 470 ==
LOC: REC 09:12 → MS1 21:00
PROVIDERS: ADMIT Orthopaedic Surgery Adult Reconstructive Orthopaedic Surgery; ATTEND Orthopaedic Surgery Adult Reconstructive Orthopaedic Surgery
PROC: 0SR904Z Replacement of Right Hip Joint with Ceramic on Polyethylene Synthetic Substitute, Open Approach (ICD-10-PCS; principal; 2019-05-07 12:30)
DX: M12.551 Traumatic arthropathy, right hip (principal); D62 Acute posthemorrhagic anemia; R73.03 Prediabetes; S72.001S Fracture of unspecified part of neck of right femur, sequela; W19.XXXS Unspecified fall, sequela
CPT/HCPCS: 72170; 73500; 73530; 80048; 82962; 83036; 85025; 85610; 85730; 86850; 86900; 86901; 87070; 87075; 87081; 87102; 87116; 88300; 88304; 88311; 97110; 97116; 97163; 97165; 97530; C1713; C1776; J0131; J0690; J1100; J1815; J2250; J2405; J3010; J3370; J7120